=== PATIENT | male | born 1995 | race African-American/Black ===

== ENCOUNTER 2025-03-28 20:33 | Emergency (ER) | payer SELFPAY ==
[~2025-03-28] VITALS: Ht 180.3 cm; Wt 70.3 kg
[2025-03-28 21:15] VITALS: BP 139/73; TEMP 98; O2SAT 100
== END 2025-03-28 21:16 | disposition left against medical advice (07) ==
LOC: ER 20:39
DX: R07.9 Chest pain, unspecified (principal); R06.02 Shortness of breath; Z53.21 Procedure and treatment not carried out due to patient leaving prior to being seen by health care provider